=== PATIENT | female | born 1945 | race Caucasian/White ===

== ENCOUNTER 2016-08-11 10:52 | Emergency (ER) | payer MEDICARE, OTHER ==
[2016-08-11 12:21] LABS: BASOPHIL 0.3 % (0-2); EOSINOPHIL 1.1 % (0-7); HCT 36.6 % (37.0-47.0); LYMPHOCYTE 13.6 % (15-48); MCH 35.8 pg (25.0-31.0); MCHC 35.5 g/dL (32.0-36.0); MCV 100.8 fL (78.0-100.0); MONOCYTE 7.8 % (0-12); MPV 8.5 fL (6.0-9.5); NEUTROPHIL 77.2 % (41-80); PLT 270 K/uL (150-400); RBC 3.63 M/uL (4.20-5.40); RDW 12.6 % (11.5-14.0); WBC 7.2 K/uL (4.0-10.5)
[2016-08-11 12:24] LABS: INR 0.97 (0.9-1.2); PROTHROMBIN TIME 12.5 SECONDS (11.7-14.0); PTT 28.1 SECONDS (23.2-31.4)
[2016-08-11 12:27] LABS: BILIRUBIN - TOTAL 0.6 mg/dL (0.1-1.0); CREATININE 1.1 mg/dL (0.5-1.0); GLOBULIN (CALCULATION) 3.4 g/dL (2.2-4.2); POTASSIUM 4.1 mmol/L (3.5-5.1); TOTAL PROTEIN 7.4 g/dL (6.4-8.3)
[2016-08-11 12:35] LABS: BILIRUBIN 2+ mg/dL (NEGATIVE); BLOOD 3+ Ery/uL (NEGATIVE); COLOR RED (YELLOW); GLUCOSE (U) TRACE mg/dL (NORMAL); KETONE (U) 1+ (SMALL) mg/dL (NEGATIVE); LEUKOCYTES 3+ Leu/uL (NEGATIVE); NITRITE POSITIVE (NEGATIVE); PROTEIN 3+ mg/dL (NEGATIVE); pH 8.5 (5.0-9.0)
[2016-08-11 12:39] LABS: CLARITY CLOUDY (CLEAR)
[2016-08-11 12:40] LABS: URINARY RBC TNTC
[2016-08-11 12:41] LABS: BACTERIA 3+; CALCIUM OXALATE CRYSTALS TRACE; SQUAMOUS EPITHELIAL CELLS RARE
== END 2016-08-11 14:08 | disposition home or self-care (01) ==
LOC: FER 10:52
PROVIDERS: Nurse Practitioner
DX: N30.91 Cystitis, unspecified with hematuria (principal); E78.5 Hyperlipidemia, unspecified; F17.210 Nicotine dependence, cigarettes, uncomplicated; Z88.8 Allergy status to other drugs, medicaments and biological substances; Z79.82 Long term (current) use of aspirin; Z79.899 Other long term (current) drug therapy
CPT/HCPCS: 36415; 80053; 81001; 85025; 85610; 85730